=== PATIENT | male | born 1995 | race Caucasian/White ===

== ENCOUNTER 2022-10-02 19:53 | Emergency (ER) | payer MEDICAID, SELFPAY ==
[2022-10-02 20:04] VITALS: BP 142/79; PULSE 78; RESP 16; TEMP 36.8; O2SAT 97; BMI 24.1
== END 2022-10-03 00:41 | disposition left against medical advice (07) ==
LOC: HO.ED 10-03 00:38
PROVIDERS: Emergency Provider Emergency Medicine
DX: T26.42XA Burn of left eye and adnexa, part unspecified, initial encounter (principal); X10.2XXA Contact with fats and cooking oils, initial encounter; Y93.E9 Activity, other interior property and clothing maintenance; Y92.511 Restaurant or cafe as the place of occurrence of the external cause; Y99.0 Civilian activity done for income or pay
CPT/HCPCS: 99281

== ENCOUNTER 2024-12-14 09:53 | Emergency (ER) | payer OTHER, MEDICAID, SELFPAY ==
--- NOTE | ~2024-12-14 | XR_ITS ---
CLINICAL HISTORY: cough 2 view chest x-ray Comparison: None Findings: No consolidation or effusion. Normal size heart. No acute fracture. IMPRESSION: 1. No acute findings. This document has been electronically signed by: Onel Penn MD on 12/14/2024 11:31:25
[2024-12-14 10:06] VITALS: BP 125/77; PULSE 107; RESP 20; TEMP 37.8; O2SAT 96; BMI 21.7
[2024-12-14] MEDS: Acetaminophen 325 MG TABLET 650 MG PO (10:12)
[2024-12-14 10:59] LABS: Influenza A PCR POSITIVE (Negative); Influenza B PCR NEGATIVE (Negative); Resp Syncy Virus RNA Qual PCR NEGATIVE (Negative); SARS COV2 PCR INHOUSE NEGATIVE (Negative)
--- NOTE | 2024-12-14 11:58 | ED_ITS ---
HPI - URI/Sore Throat General Chief Complaint: Upper Respiratory Symptoms Stated Complaint: flu symptoms Time Seen by Provider: 12/14/24 11:43 Source: patient Mode of arrival: ambulatory Limitations: no limitations History of Present Illness ED Provider: JERAD ODEN Narrative: 29 yo male with no sig PMH he notes his boss was sick but he has been ill with body cramps, cough, headaches, able to drink fluids but not eating much solids. Nausea and not feeling well. At this time he reports no prior hx of asthma or smoking. He used to vape. He has been trying some OTC meds with little relief. MD elicited complaint: fever, cough, sore throat and rhinorrhea Onset (ago): day(s) (4) Consistency: constant Severity: moderate Description of mucous: clear Able to tolerate fluids by mouth: Yes Exacerbating factors: swallowing and other Relieving factors: nothing Context: sick contacts Associated symptoms: fever, chills, myalgias, headache, rhinorrhea, sore throat and cough Treatments prior to arrival: none Related Data Previous Rx's ?Medication ?Instructions ?Recorded albuterol sulfate 90 mcg/actuation 2 puff inhalation QID PRN 12/14/24 aerosol inhaler shortness of breath or wheezing #6.7 grams azithromycin 250 mg tablet See Rx Instructions PO .COMPLEX #6 12/14/24 tabs ondansetron 4 mg disintegrating 4 mg PO Q8H PRN nausea and 12/14/24 tablet vomiting #20 tabs Allergies Allergy/AdvReac Type Severity Reaction Status Date / Time No Known Allergies Allergy Verified 12/14/24 10:08 Review of Systems Review of Systems: Constitutional : pos Fever, pos Chills, pos Fatigue ENT/Mouth : No sore throat, No Rhinorrhea Eyes: No Eye Pain, No Swelling, No Redness Cardiovascular : No Chest Pain, No SOB, No Dyspnea on Exertion Respiratory : pos Cough, No Sputum Gastrointestinal : pos Nausea, No Vomiting, No Diarrhea, No abdominal Pain Genitourinary : No Dysuria, No Urinary Frequency, No Hematuria, Musculoskeletal : pos joint pain, pos Myalgias, No Joint Swelling Skin : No Skin Lesions, No rash Neuro : No Weakness, No Numbness, No Dizziness, positive Headache Psych : No Anxiety/Panic, No Depression All other systems reviewed and are negative [facility] Past Medical History Attestation statement: The following information was validated with the patient. Source: old records reviewed Medical History (Updated 12/14/24 @ 13:17 by Celia Washington DO) No pertinent past medical history Social History Social History (Updated 12/14/24 @ 13:19 by Celia Washington DO) Patient Tobacco Use Status: Former Tobacco user Physical Exam Vital Signs: Vital Signs: Last Vital Signs Temp 100.0 F 12/14/24 12:19 Pulse 107 H 12/14/24 12:19 Resp 20 12/14/24 12:19 BP 125/77 12/14/24 12:19 Pulse Ox 96 12/14/24 12:19 O2 Del Method Room Air 12/14/24 12:19 BMI result Body Mass Index 21.7 Appearance: Alert. Oriented X3. No acute distress. Eyes: Pupils equal, round and reactive to light. ENT: Pharynx normal. MMM Neck: Normal inspection. Neck supple. CVS: Normal heart rate and rhythm. Pulses normal. Respiratory: No respiratory distress. Breath sounds slightly decreased RLL Abdomen: Soft and nontender. Skin: Skin warm and dry. Normal skin color. Normal skin turgor. Extremities: No lower extremity edema. No calf ttp Neuro: Oriented X 3. No motor deficit. No sensory deficit. CN2-12 intact Medications Administered Discontinued Medications Generic Name Dose Route Start Last Admin Trade Name Salvatore PRN Reason Stop Dose Admin Acetaminophen 650 mg 12/14/24 10:10 12/14/24 10:12 Acetaminophen 325 Mg Tablet PO 12/14/24 10:11 650 mg ONCE ONE Administration Medical Decision Making Medical Decision Making [facility] Narrative: 29 yo male no PMH here with 4 days of URI symptoms overall not toxic at this time he is able to drink fluids given clinical exam there is concern for possible RLL early pneumonia. Will obtain viral panel and for CXR start on zpak, steroids, INH. He is out of the window for tamiflu. He is able to drink. Will DC home with precautions to return. Differential Diagnosis Differential Diagnoses: The differential diagnosis associated with the presentation includes pneumonia, viral syndrome Admission/Observation Consideration of admission/observation: Escalation of care including admission/observation considered VS stable, tolerating PO can be managed as outpatient Lab Data [facility] Lab Attestation statement: I reviewed the patient's lab results. Labs: Lab Results 12/14/24 Range/Units 10:15 Influenza Type A (PCR) POSITIVE A (Negative) Influenza Type B (PCR) NEGATIVE (Negative) RSV RNA Qual (PCR) NEGATIVE (Negative) SARS-CoV-2 RNA (RT-PCR) NEGATIVE (Negative) Independent Interpretation I performed an independent interpretation of an: Plain X-Ray Radiology Impression Discussion of test interpretation with radiology: I have reviewed the radiologist's reading. Prescription Management I considered prescription management with: Antiviral, Antibiotic and Other Discharge Plan Discharge Clinical Impression: Influenza Pneumonia Qualifiers: Pneumonia type: due to unspecified organism Laterality: right Lung location: lower lobe of lung Qualified Code(s): J18.9 - Pneumonia, unspecified organism Patient Disposition: Home, Self-Care Instructions: Influenza (ED), Bacterial Pneumonia (ED) Additional Instructions: postive for flu a at this time you need to rest and stay hydrated continue fluids + for FLU A return for worsening breathing, chest pain, vomiting or any other concerns this is contagious you are out of the window for tamiflu treatment Prescriptions: New azithromycin 250 mg tablet See Rx Instructions .ROUTE .COMPLEX Qty: 6 0RF Rx Instructions: For 250 mg dose pack: take 500 mg today (day 1), then 250 mg for 4 days (days 2-5) albuterol sulfate 90 mcg/actuation HFA aerosol inhaler 2 puff inhalation QID PRN (Reason: shortness of breath or wheezing) Qty: 6.7 0RF ondansetron 4 mg tablet,disintegrating 4 mg PO Q8H PRN (Reason: nausea and vomiting) Qty: 20 0RF Stand Alone Forms: Work/School Release Interventions: ED Discharge Assessment Last Done: 12/14/24 12:19 Discharge Date/Time: 12/14/24 12:20 Print Language: Syriac
[2024-12-14 12:19] VITALS: BP 125/77; PULSE 107; RESP 20; TEMP 37.8; O2SAT 96
== END 2024-12-14 12:20 | disposition home or self-care (01) ==
PROVIDERS: Emergency Provider Emergency Medicine
DX: J10.00 Influenza due to other identified influenza virus with unspecified type of pneumonia (principal); R05.9 Cough, unspecified; Z03.818 Encounter for observation for suspected exposure to other biological agents ruled out
CPT/HCPCS: 0241U; 71046; 99283

== ENCOUNTER → 2024-12-14 10:10 | Outpatient (BNV) | payer OTHER, MEDICAID, SELFPAY | PROVIDERS: Emergency Provider Emergency Medicine; Visit Provider Nuclear Medicine | DX: R05.9 Cough, unspecified (principal) | CPT/HCPCS: 71046 ==

== ENCOUNTER 2025-01-10 10:51 | Emergency (ER) | payer OTHER, MEDICAID, SELFPAY ==
--- NOTE | ~2025-01-10 | XR_ITS ---
EXAMINATION: XR CHEST CLINICAL INFORMATION: cough COMPARISON: None available. TECHNIQUE: 2 views of the chest were obtained. FINDINGS: The cardiac, hilar, and mediastinal contours are normal. The lungs are clear bilaterally. There is no pneumothorax or pleural effusion. There is no focal osseous or soft tissue abnormality. XR/XR chest 2V IMPRESSION: Normal chest. Electronically signed by: Cachorro Milian MD 01/10/2025 01:14 PM [facility]
[2025-01-10 11:19] VITALS: BP 141/81; PULSE 88; RESP 18; TEMP 36.8; O2SAT 98; BMI 24.1
--- NOTE | 2025-01-10 11:22 | ED_ITS ---
HPI - General Adult General Chief complaint: Upper Respiratory Symptoms Stated complaint: SOB, recent pneumonia Time Seen by Provider: 01/10/25 13:56 Source: patient and old records reviewed Mode of arrival: ambulatory Limitations: no limitations History of Present Illness ED Provider: JERAD ODEN narrative: 29 yo male with PMH of asthma here with c/o difficulty breathing and feeling ache after breathing. He also reports cough with sputum no fevers and runny nose. There are a lot of sick people coming into his work. He denies known fevers, travel, prior blood clot. He is taking his INH with some relief. He has body aches as well MD complaint: chest pain/dyspnea Onset (ago): day(s) (2) Location: chest Radiation: non-radiation Severity: moderate Pain Consistency: intermittent Relieving factors: none Exacerbating factors: other (trying to breathe) Associated symptoms: cough, malaise, shortness of breath and other (runny nose) Treatments prior to arrival: none Related Data Previous Rx's ?Medication ?Instructions ?Recorded albuterol sulfate 90 mcg/actuation 2 puff inhalation QID PRN 12/14/24 aerosol inhaler shortness of breath or wheezing #6.7 grams azithromycin 250 mg tablet See Rx Instructions PO .COMPLEX #6 12/14/24 tabs ondansetron 4 mg disintegrating 4 mg PO Q8H PRN nausea and 12/14/24 tablet vomiting #20 tabs cyclobenzaprine 10 mg tablet 10 mg PO TID PRN muscle spasm #20 01/10/25 tabs prednisone 20 mg tablet 40 mg (2 x 20 mg) PO DAILY 5 days 01/10/25 #10 tabs Allergies Allergy/AdvReac Type Severity Reaction Status Date / Time No Known Allergies Allergy Verified 01/10/25 11:21 Review of Systems 2 Review of Systems: Constitutional : No Fever, No Chills, No Fatigue ENT/Mouth : No sore throat, No Rhinorrhea Eyes: No Eye Pain, No Swelling, No Redness Cardiovascular : pos Chest Pain, pos SOB, No Dyspnea on Exertion Respiratory : No Cough, No Sputum Gastrointestinal : No Nausea, No Vomiting, No Diarrhea, No abdominal Pain Genitourinary : No Dysuria, No Urinary Frequency, No Hematuria, Musculoskeletal : No joint pain, No Myalgias, No Joint Swelling Skin : No Skin Lesions, No rash Neuro : No Weakness, No Numbness, pos Dizziness, no Headache Psych : No Anxiety/Panic, No Depression All other systems reviewed and are negative [facility] Past Medical History Attestation statement: The following information was validated with the patient. Source: old records reviewed Medical History Asthma Social History Social History Patient Tobacco Use Status: Former Tobacco user Advance Directives: No Advance Directives Information Provided: Yes Do you have a plan to hurt others: No Plan Physical Exam ED Vital Signs: Vital Signs - 24 hr 01/10/25 11:19 Temperature 98.2 F Pulse Rate 88 Respiratory Rate 18 Blood Pressure 141/81 H Pulse Oximetry 98 BMI result Body Mass Index 24.1 Appearance: Alert. Oriented X3. No acute distress. Eyes: Pupils equal, round and reactive to light. ENT: Pharynx normal. Neck: Normal inspection. Neck supple. CVS: Normal heart rate and rhythm. Pulses normal. Respiratory: No respiratory distress. Breath sounds normal. Abdomen: Soft and nontender. Skin: Skin warm and dry. Normal skin color. Normal skin turgor. Extremities: No lower extremity edema. No calf ttp Neuro: Oriented X 3. No motor deficit. No sensory deficit. CN2-12 intact Course Course Course Narrative: This is a rapid medical exam performed by Kellen Zepeda PA-C. The patient is a 29-year-old male with self report of recent pneumonia, who presents with new cough and cold symptoms over the past few days. On exam the patient's lungs are clear his oxygen saturation is appropriate, we will be screening basic labs a viral panel and a chest x-ray. The patient is stable and can return to the waiting room pending his full medical assessment. Procedures Procedure Narrative Procedure Narrative: bedside cardiac US no effusion, no GWMA apical subxiphoid parasternal Medical Decision Making Medical Decision Making MDM Narrative: 29 yo male with PMH of asthma here with c/o chest wall pain and not feeling well for 2 days at this time he is PERC negative, distal pulses intact doubt dissection, clear lungs doubt PTX, infection at this time will obtain CXR, EKG for pericarditis, doubt ACS has no risk factors - EKG reassuring, chest pain is atypical in nature doubt myocarditis it is more of an ache not sharp. Start on steroids and muscle relaxers if negative Differential Diagnosis Differential Diagnoses: The differential diagnosis associated with the presentation includes PERC negative not toxic appearing distal pulses intact dissection URI costochondritis pericarditis Admission/Observation Consideration of admission/observation: Escalation of care including admission/observation considered negative work up stable for DC Lab Data [facility] Lab Attestation statement: I reviewed the patient's lab results. 01/10/25 11:45 01/10/25 11:45 Labs: Lab Results 01/10/25 Range/Units 11:45 WBC 6.2 (4.8-10.8) X10*3/uL RBC 4.74 (4.60-5.80) X10*6/uL Hgb 14.1 (14.0-18.0) g/dl Hct 41.0 L (42.0-52.0) % MCV 86.5 (80.0-98.0) fL MCH 29.7 (27.0-33.0) pg MCHC 34.4 (31.0-36.0) g/dl RDW 12.7 (11.0-16.0) % Plt Count 264 (160-400) X10*3/uL MPV 8.8 L (9.4-12.4) fL Immature Gran % (Auto) 0.5 H (0.0-0.4) % Neut % (Auto) 50.6 (45-73) % Lymph % (Auto) 36.5 (20-40) % [place] % (Auto) 9.5 (2-11) % Eos % (Auto) 2.1 (0-4) % Baso % (Auto) 0.8 (0-2) % Lymph # (Auto) 2.3 (1.2-4.9) X10*3/uL [place] # (Auto) 0.6 (0.1-1.2) X10*3/uL Eos # (Auto) 0.1 (0.0-0.4) X10*3/uL Baso # (Auto) 0.1 (0.0-0.2) X10*3/uL Abs Immat Gran (auto) 0.03 (0.00-0.03) X10*3/uL Absolute Neuts (auto) 3.2 (2.0-8.3) x10*3/uL Absolute Nucleated RBC 0.000 (0.0-0.012) X10*3/uL Nucleated RBC % (auto) 0.0 (0.0-0.2) /100WBC Sodium 140 (135-145) mmol/L Potassium 4.8 (3.3-5.1) mmol/L Chloride 105 (96-108) mmol/L Carbon Dioxide 28 (22-29) mmol/L Anion Gap 12 (12-20) BUN 17 H (9-16) mg/dL Creatinine 0.92 (0.5-1.4) mg/dL Estim Creat Clear Calc 103.0 Estimated GFR > 60 Random Glucose 90 (60-115) mg/dL Calcium 9.7 (8.4-10.2) mg/dL Magnesium 2.2 (1.6-2.6) mg/dL Influenza Type A (PCR) NEGATIVE (Negative) Influenza Type B (PCR) NEGATIVE (Negative) RSV RNA Qual (PCR) NEGATIVE (Negative) SARS-CoV-2 RNA (RT-PCR) NEGATIVE (Negative) Independent Interpretation I performed an independent interpretation of an: EKG and Plain X-Ray (normal ) Interpretation: Rate: 68 Rhythm: NSR [place]: left Normal P waves. Normal [place]. Normal QRS complex. ST T wave : normal no XIOMY qTC: 363 prior studies: The study has been interpreted contemporaneously by me. . Radiology Impression Discussion of test interpretation with radiology: I have reviewed the radiologist's reading. External Record Review External record reviewed: Outpatient record Prescription Management I considered prescription management with: Other Discharge Plan Discharge Clinical Impression: Atypical chest pain Upper respiratory infection Qualifiers: URI type: unspecified URI Qualified Code(s): J06.9 - Acute upper respiratory infection, unspecified Patient Disposition: Home, Self-Care Instructions: Chest Pain (ED), Upper Respiratory Infection (ED) Additional Instructions: stay hydrated negative for covid, flu, rsv chest xray reassuring EKG reassuring return for any worsening symptoms or complaints or any other concerns Prescriptions: New cyclobenzaprine 10 mg tablet 10 mg PO TID PRN (Reason: muscle spasm) Qty: 20 0RF prednisone 20 mg tablet 40 mg PO DAILY 5 Days Qty: 10 0RF No Action azithromycin 250 mg tablet See Rx Instructions .ROUTE .COMPLEX Qty: 6 0RF Rx Instructions: For 250 mg dose pack: take 500 mg today (day 1), then 250 mg for 4 days (days 2-5) albuterol sulfate 90 mcg/actuation HFA aerosol inhaler 2 puff inhalation QID PRN (Reason: shortness of breath or wheezing) Qty: 6.7 0RF ondansetron 4 mg tablet,disintegrating 4 mg PO Q8H PRN (Reason: nausea and vomiting) Qty: 20 0RF Stand Alone Forms: Work/School Release Print Language: South Sudanese
[2025-01-10 11:50] LABS: MANUAL DIFF FLAG NO
[2025-01-10 11:51] LABS: Basophils Absolute Auto 0.1 X10*3/uL (0.0-0.2); Basophils Percent Auto 0.8 % (0-2); Eosinophils Absolute Auto 0.1 X10*3/uL (0.0-0.4); Eosinophils Percent Auto 2.1 % (0-4); Hemoglobin 14.1 g/dl (14.0-18.0); Imm Gran Abs Auto 0.03 X10*3/uL (0.00-0.03); Imm Gran Pct Auto 0.5 % (0.0-0.4); Lymphocytes Absolute Auto 2.3 X10*3/uL (1.2-4.9); Lymphocytes Percent Auto 36.5 % (20-40); Mean Corpuscular HGB Conc 34.4 g/dl (31.0-36.0); Mean Corpuscular Hemoglobin 29.7 pg (27.0-33.0); Mean Corpuscular Volume 86.5 fL (80.0-98.0); Mean Platelet Volume 8.8 fL (9.4-12.4); Monocytes Absolute Auto 0.6 X10*3/uL (0.1-1.2); Monocytes Percent Auto 9.5 % (2-11); Neutrophils Absolute Auto 3.2 x10*3/uL (2.0-8.3); Neutrophils Percent Auto 50.6 % (45-73); Platelet Count 264 X10*3/uL (160-400); Red Blood Count 4.74 X10*6/uL (4.60-5.80); Red Cell Distribution Width 12.7 % (11.0-16.0); White Blood Count 6.2 X10*3/uL (4.8-10.8)
[2025-01-10 12:14] LABS: Magnesium 2.2 mg/dL (1.6-2.6)
[2025-01-10 12:30] LABS: Influenza A PCR NEGATIVE (Negative); Influenza B PCR NEGATIVE (Negative); Resp Syncy Virus RNA Qual PCR NEGATIVE (Negative); SARS COV2 PCR INHOUSE NEGATIVE (Negative)
--- NOTE | 2025-01-10 14:16 | ECG_ITS ---
Test Reason : CHEST PAIN Blood Pressure : */* mmHG Vent. Rate : 68 BPM Atrial Rate : 68 BPM P-R Int : 134 ms QRS Dur : 86 ms QT Int : 342 ms P-R-T Axes : 56 3 49 degrees QTcB Int : 363 ms Normal sinus rhythm Normal ECG No previous ECGs available Referred By: Camila Sy Electronically Signed By: CIERA JAIMES
[2025-01-10 14:30] LABS: Anion Gap 12 (12-20); Blood Urea Nitrogen 17 mg/dL (9-16); Calcium 9.7 mg/dL (8.4-10.2); Carbon Dioxide 28 mmol/L (22-29); Chloride 105 mmol/L (96-108); Estimated Glomerular Filt Rate > 60; Glucose Random 90 mg/dL (60-115); Potassium 4.8 mmol/L (3.3-5.1); Sodium 140 mmol/L (135-145)
--- OUTSIDE RECORDS SUMMARY | 2025-01-10 14:40 | XMS_ITS | Continuity of Care Document ---
Author Organization [facility] Address [address] [place] [address] Phone Care Team Providers Care Route Clerk Name Role Phone Chris Baig MD Unavailable Unavailable Allergies, Adverse Reactions, Alerts Substance Reaction Status Criticality No Known allergies Procedures Procedure Date OV, Estab Pt, Level III Tympanometry Comp Audiometry Threshold Eval 12 OV, New Pt, Level III Binocular Microscopy Comp Audiometry Threshold Eval 12 Tympanometry Advance Directives Directive Yes / No Effective Date File Name No Information Encounters Encounter Description Practice Location Reason(s) For Visit Diagnoses Date Provider Providers Copied on Encounter OV, Estab Pt, Level III [facility], [address], [place], [place], [id number], [place] tel:[phone] [facility] Ear Pain (chief complaint) Otalgia NosPerforat Tympan Memb NosDysfunct Eustachian Tube Jovanni Perez. [address], [address], [place], [id number], [place]. tel:[phone] OV, New Pt, Level III [facility], [address], [place], [place], [id number], [place] tel:[phone] [facility] Ear Pain (chief complaint) Perforat Tympan Memb NosOtalgia Nos Jovanni Perez. [address], [address], [place], [place], [id number], [place]. tel:[phone] Family History Family Member Type Diagnosis Age At Onset Problem (finding) Family history of depre ssion Problem (finding) Diabetes mellitus Problem (finding) Family history of breas t cancer Problem (finding) Payers Payer name Insurance type Covered green party ID Authoriza tion(s) No Information Social History Type Description Quantity Date Captured Comments Alcohol Use Details Unknown Caffeine Use Details Unknown Tobacco Use Status No Information Smoking Status No Information Sex Male Chief Complaint And Reason For Visit From encounter dated '10/09/2012 16:20'. Ear Pain (chief complaint). Description: The problem has improved. PREVIOUS: The onset was 2 week(s) ago. The severity level is moderate. The location is the right. The symptom is intermittent. It isdescribed as aching. Associated symptoms include aural discharge, blood from ear, hearing loss. Pertinent negatives include dizziness, tinnitus. There are no known agg Reason For Referral Reason For Referral No Information History Of Present Illness Encounter Date Complaint History Of Prese nt Illness No Information Functional Status Date Functional Assessmen t No Information Instructions Date Instruction Additional Infor mation No Information Assessments Type Assessment Date No Information Patient Care Teams Name Effective Dates (start - stop) Status Members No Information
[2025-01-10 14:49] VITALS: BP 141/81; PULSE 88; RESP 18; TEMP 36.8; O2SAT 98
== END 2025-01-10 14:50 | disposition home or self-care (01) ==
PROVIDERS: Physician Assistant Medical; Emergency Provider Emergency Medicine
DX: R07.89 Other chest pain (principal); J06.9 Acute upper respiratory infection, unspecified; R06.02 Shortness of breath; R05.9 Cough, unspecified; Z87.891 Personal history of nicotine dependence; Z03.818 Encounter for observation for suspected exposure to other biological agents ruled out
CPT/HCPCS: 0241U; 36415; 71046; 80048; 83735; 85025; 93005; 99283

== ENCOUNTER → 2025-01-10 11:22 | Outpatient (BNV) | payer OTHER, MEDICAID, SELFPAY | PROVIDERS: Emergency Provider Emergency Medicine; Visit Provider Radiology Diagnostic Radiology | DX: R05.9 Cough, unspecified (principal) | CPT/HCPCS: 71046 ==

== ENCOUNTER → 2025-01-10 14:16 | Outpatient (BNV) | payer OTHER, MEDICAID, SELFPAY | PROVIDERS: Emergency Provider Emergency Medicine; Visit Provider Internal Medicine | DX: R07.9 Chest pain, unspecified (principal) | CPT/HCPCS: 93010 ==